=== PATIENT | female | born 1950 | race Caucasian/White ===

== ENCOUNTER 2023-06-17 08:36 | Day surgery (SDC) | payer OTHER ==
[2023-06-17 11:03] VITALS: BP 171/72; TEMP 98.1
== END 2023-06-17 11:04 | disposition home or self-care (01) ==
LOC: CSHRAD 08:36
PROVIDERS: ATTEND Neurological Surgery
PROC: B02BY0Z Computerized Tomography (CT Scan) of Spinal Cord using Other Contrast, Unenhanced and Enhanced (ICD-10-PCS; principal; 2023-06-17)
DX: M54.16 Radiculopathy, lumbar region (principal)
CPT/HCPCS: 62304; 72132